=== PATIENT | female | born 1995 | race Two or more races ===

== ENCOUNTER 2020-01-12 22:43 | Emergency (ER) | payer BC ==
[~2020-01-12] VITALS: Ht 157.5 cm; Wt 72.6 kg
[2020-01-12 23:42] VITALS: BP 122/53
== END 2020-01-12 23:35 | disposition home or self-care (01) ==
LOC: ED 22:43
DX: O36.8120 Decreased fetal movements, second trimester, not applicable or unspecified (principal); Z3A.20 20 weeks gestation of pregnancy